=== PATIENT | male | born 1965 | race Two or more races ===

== ENCOUNTER 2018-11-04 12:51 | Emergency (ER) | payer SELFPAY ==
[2018-11-04 13:44] LABS: BASOPHIL % 0.4 % (0-2); PLATELET COUNT 196 x10^3mcL (130-400); RED CELL DISTRIBUTION WIDTH 12.6 % (11.5-14.5)
[2018-11-04 14:53] LABS: CALCIUM 8.7 mg/dL (8.5-10.1); CARBON DIOXIDE 26.7 mmol/L (21-32); CHLORIDE SERUM 96 mmol/L (98-107); CREATININE SERUM 1.1 mg/dL (0.7-1.3); GFR1 > 60 mL/min; GLUCOSE SERUM 361 mg/dL (74-106); SODIUM SERUM 135 mmol/L (136-145)
[2018-11-04 14:59] LABS: ALBUMIN 3.4 g/dL (3.4-5.0); ALKALINE PHOSPHATASE 83 U/L (46-116); ALT/SGPT 19 U/L (16-63); AST/SGOT 19 U/L (15-37); BILIRUBIN TOTAL 0.53 mg/dL (0.20-1.00); TOTAL PROTEIN, SERUM 7.4 g/dL (6.4-8.2)
[2018-11-04 17:22] LABS: AMPHETAMINE QUAL UR NONE DETECTED (See below)
[2018-11-04 17:25] VITALS: BP 138/84
== END 2018-11-04 17:25 | disposition home or self-care (01) ==
LOC: ED 12:51
PROVIDERS: Emergency Medicine
DX: R55 Syncope and collapse (principal); R25.3 Fasciculation; G89.29 Other chronic pain; M54.9 Dorsalgia, unspecified
CPT/HCPCS: 83880; 85378; J2060; J7030; Q0092

== ENCOUNTER 2018-11-19 23:24 | Emergency (ER) | payer MEDICARE ==
[~2018-11-19] VITALS: Ht 172.7 cm; Wt 103.4 kg
[2018-11-19 23:31] VITALS: Ht 172.7 cm; Wt 103.4 kg
[2018-11-20 01:43] LABS: BASOPHIL % 1.2 % (0-2); PLATELET COUNT 247 x10^3mcL (130-400); RED CELL DISTRIBUTION WIDTH 11.9 % (11.5-14.5)
[2018-11-20 02:26] LABS: microscopic required? NO
[2018-11-20 02:29] LABS: UA SPECIFIC GRAVITY <=1.005 (1.005-1.035); urine erythrocyte NEGATIVE (NEGATIVE)
[2018-11-20 02:43] LABS: CALCIUM 8.9 mg/dL (8.5-10.1); CARBON DIOXIDE 26.7 mmol/L (21-32); CHLORIDE SERUM 93 mmol/L (98-107); CREATININE SERUM 1.1 mg/dL (0.7-1.3); GFR1 > 60 mL/min; GLUCOSE SERUM 361 mg/dL (74-106); SODIUM SERUM 132 mmol/L (136-145)
[2018-11-20 02:48] LABS: ALBUMIN 3.5 g/dL (3.4-5.0); ALKALINE PHOSPHATASE 137 U/L (46-116); ALT/SGPT 26 U/L (16-63); AST/SGOT 28 U/L (15-37); BILIRUBIN TOTAL 0.2 mg/dL (0.20-1.00); LIPASE 870 IU/L (73-393)
[2018-11-20 06:07] VITALS: BP 142/98
== END 2018-11-20 06:07 | disposition home or self-care (01) ==
LOC: ED 23:24
PROVIDERS: Emergency Medicine
DX: R07.89 Other chest pain (principal); R10.9 Unspecified abdominal pain; G89.29 Other chronic pain; M54.9 Dorsalgia, unspecified; I10 Essential (primary) hypertension; E11.9 Type 2 diabetes mellitus without complications
CPT/HCPCS: 82962; J1885; J2270; J7030; Q0092; Q9967

== ENCOUNTER 2019-04-24 18:59 | Emergency (ER) | payer MEDICARE ==
[~2019-04-24] VITALS: Ht 175.3 cm; Wt 90.3 kg
[2019-04-24 19:54] LABS: UA SPECIFIC GRAVITY <=1.005 (1.005-1.035); microscopic required? YES; urine erythrocyte NEGATIVE (NEGATIVE)
[2019-04-24 19:57] LABS: BASOPHIL % 0.5 % (0-2); PLATELET COUNT 230 x10^3mcL (130-400); RED CELL DISTRIBUTION WIDTH 12.8 % (11.5-14.5)
[2019-04-24 20:18] LABS: CARBON DIOXIDE 26.4 mmol/L (21-32); CHLORIDE SERUM 104 mmol/L (98-107); CREATININE SERUM 0.8 mg/dL (0.7-1.3); GFR1 > 60 mL/min; GLUCOSE SERUM 229 mg/dL (74-106); POTASSIUM SERUM 3.8 mmol/L (3.5-5.1); SODIUM SERUM 140 mmol/L (136-145)
[2019-04-24 20:23] LABS: ALKALINE PHOSPHATASE 64 U/L (46-116); AST/SGOT 16 U/L (15-37); BILIRUBIN TOTAL 0.19 mg/dL (0.20-1.00); TOTAL PROTEIN, SERUM 6.5 g/dL (6.4-8.2)
[2019-04-24 20:25] LABS: ALBUMIN 3.1 g/dL (3.4-5.0)
[2019-04-24 20:34] LABS: ALT/SGPT 20 U/L (16-63)
[2019-04-25 00:25] VITALS: BP 130/79
== END 2019-04-25 00:25 | disposition home or self-care (01) ==
LOC: ED 18:59
PROVIDERS: Emergency Medicine
DX: M51.36 Other intervertebral disc degeneration, lumbar region (principal); N20.0 Calculus of kidney; I10 Essential (primary) hypertension; E11.9 Type 2 diabetes mellitus without complications; Z98.890 Other specified postprocedural states
CPT/HCPCS: J1885; J2270; J2405; J3490

== ENCOUNTER 2019-05-07 00:20 | Emergency (ER) | payer MEDICARE ==
[~2019-05-07] VITALS: Ht 172.7 cm; Wt 88.9 kg
[2019-05-07 00:26] VITALS: Ht 172.7 cm; Wt 88.9 kg
[2019-05-07 04:33] VITALS: BP 135/87
== END 2019-05-07 04:34 | disposition home or self-care (01) ==
LOC: ED 00:20
DX: M54.5 Low back pain (principal); G89.29 Other chronic pain; I10 Essential (primary) hypertension; E11.9 Type 2 diabetes mellitus without complications
CPT/HCPCS: J1885; J2270